=== PATIENT | female | born 1935 | race Caucasian/White ===

== ENCOUNTER 2017-07-12 10:18 | Outpatient (CLI) | payer MEDICARE, OTHER ==
[2016-03-30 14:03] VITALS: BP 131/57
== END 2017-07-12 10:20 ==
LOC: LABRHC 10:18
PROVIDERS: ATTEND Physician Assistant
DX: R30.0 Dysuria (principal)
CPT/HCPCS: 87086; 87186

== ENCOUNTER 2017-10-04 15:48 | Inpatient (IN) | payer MEDICARE, OTHER ==
--- NOTE | 2017-10-04 17:44 | History and Physical Report ---
History of Present Illnes - History of Present Illness Reason for Visit: Gait disturbance following debilitating illness. History of Present Illness: Patient is an 82-year-old white female who resides at [facility]. Patient has a history of chronic UTIs and is on prophylactic Macrobid hundred milligrams Q day for this. Recently patient was found to be lethargic mentally confused and was subsequently evaluated at [facility]. With felt that the patient was septic with pneumonia and possible another UTI and was subsequently admitted to [facility] ([facility]). Patient was subsequently started on Cipro. Patient did improve however she remained weak and was felt to be an increase fall risk secondary to her gait disturbance. Patient was subsequently transferred to this institution for further rehab services. Patient denied that she had any other medical problems. Her hospital stay at [facility]. - Past Medical History Cardiac: CHF, HTN, Hyperlipidemia, Other [employer]: TIA, Other (Parkinsons disease). denies: Seizure Endocrine: Diabetes (type 2) - Past Surgical History Past Surgical History: Appendectomy, Hysterectomy, Other (Bilateral carotid endarterectomies, left total hip replacement, right hip ORIF, venous strippiong of left lower extremity) - Past Family History Mother Family History: Father Family History: - Past Social History Smoke: No Alcohol: None Drugs: None Lives: With Family - Health Maintenance Health Maintenance: Cholesterol, Mammogram Influenza Vaccine: Current for this Influenza Season Pneumonia Vaccine: Yes Resuscitation Status: Resusciation Status Resuscitation Status Do Not Resuscitate - Unable to Obtain History Unable to Obtain: No Review of Systems - Review of Systems Constitutional: negative: Fever, Chills, Sweats Eyes: negative: pain, vision change ENT: negative: Ear Pain, Ear Discharge, Nose Pain, Nose Discharge, Nose Congestion, Mouth Pain, Mouth Swelling, Throat Pain, Throat Swelling Respiratory: negative: Cough, Dry, Shortness of Breath, Hemoptysis, SOB with Excertion, Sputum, Wheezing Cardiovascular: negative: Chest Pain, Palpitations Gastrointestinal: negative: Nausea, Vomiting, Abdominal Pain, Diarrhea, Constipation, Melena Genitourinary: negative: Dysuria, Frequency Musculoskeletal: negative: Neck Pain, Shoulder Pain Skin: negative: Rash, Lesions Neurological: Weakness. negative: Numbness, Incoordination - Medications/Allergies Allergies/Adverse Reactions: Allergies Allergy/AdvReac Type Severity Reaction Status Date / Time aspirin Allergy Unknown Verified 02/24/16 20:58 metronidazole [From Flagyl] Allergy Unknown Verified 02/24/16 20:59 Penicillins Allergy Verified 02/24/16 20:58 Current Inpatient Medications: Current Inpatient Medications Acetaminophen (Tylenol) 650 mg PO Q4 PRN PRN Reason: PAIN Aspirin (Aspirin) 81 mg PO DAILY [facility] Carbidopa/Levodopa (Sinemet) 1 each PO TID [facility] Cholecalciferol (Vitamin D-3) 2,000 unit PO DAILY [facility] Ciprofloxacin (Cipro) 500 mg PO BID [facility] Stop: 10/09/17 20:59 Docusate Sodium (Colace) mg PO BID [facility] Enoxaparin Sodium (Lovenox) 30 mg SQ QD [facility] Stop: 10/17/17 18:01 Escitalopram Oxalate (Lexapro) 10 mg PO QD [facility] Glimepiride (Amaryl) 4 mg PO 0730 [facility] Insulin Human Lispro (Humalog) 0 unit SQ 0730,12,17 PRN; Protocol PRN Reason: Hyperglycemica Lactobacillus Acidophilus (Acidophilus X-Str Tab) 1 each PO BID [facility] Melatonin (Melatonin) 3 mg PO HS PRN PRN Reason: Insomnia Nitrofurantoin Macrocrystals (Macrobid) mg PO D [facility] Oxybutynin Chloride (Ditropan) 5 mg PO BID [facility] Simvastatin (Zocor) 40 mg PO HS [facility] Exam - Exam General: Alert, Oriented to Person, Oriented to Place, Oriented to Time, Cooperative, No acute distress HEENT: Atraumatic, PERRLA, EOMI, Mouth Mucous membr. moist/[place], Nose Mucous membr. moist/[place] Neck: Normal Range of Motion. No: Rigidity, Lymphadenopathy Carotids: WNL Thyroid: WNL Lungs: Clear to auscultation, Normal air movement, Speaks full Sentences Cardiovascular: Regular rate, Normal S1, Normal S2, No murmurs Abdomen: Normal bowel sounds, Soft, No tenderness, No hepatospenomegaly, No masses Integumentary: Normal, [place], Warm, Dry Extremities: No clubbing, No cyanosis, No edema, Normal pulses, No tenderness/ swelling Neurological: Normal gait, Normal speech, Strength Equal Bilat, Normal tone, Sensation intact, Cranial nerves 3-12 NL, Reflexes 2+ Psych/Mental Status: Mental status NL, Mood NL, Appropriate Affect, Intact Judgment Assessment/Plan - Assessment/Plan (1) Gait abnormality Status: Acute Assessment: Patient is unsteady with her ambulation at this time. Will get physical and occupational therapy. It is hoped that the patient will be able to return to her assisted living. (2) CHF (congestive heart failure) Status: Chronic Assessment: Recent exacerbation of acute on chronic congestive heart fair with diastolic dysfunction. Patient seem to be doing well at this time. Patient is not complain of any shortness of breath or chest pain. Patient is not have any orthotic symptoms. Will continue with present medications and monitor patient. (3) Status post cerebrovascular accident Status: Chronic Assessment: Status post left-sided CVA with residual neurological deficits on the right side mainly consisting of right patient dripping. The seem to be stable. Patient denies any new symptoms. (4) Essential hypertension Status: Chronic Assessment: Patient will be continued on present home medications. Will monitor patient blood pressure. (5) Diabetes Status: Chronic Qualifiers: Diabetes mellitus type: type 2 Diabetes mellitus complication status: with circulatory complication Diabetes mellitus complication detail: with other circulatory complications Qualified Code(s): E11.59 - Type 2 diabetes mellitus with other circulatory complications Assessment: Appears to be stable at this time. Patient denies any hypoglycemic episodes. Will continue at present insulin and climate right therapy. Will monitor patient blood sugars. (6) Pneumonia Status: Acute Qualifiers: Pneumonia type: due to unspecified organism Laterality: bilateral Lung location: lower lobe of lung Qualified Code(s): J18.9 - Pneumonia, unspecified organism Assessment: Appears to be well treated at this time. Patient is not complain of any shortness of breath or cough. Patient denies any chest pain. (7) Parkinson disease Status: Chronic Assessment: Stable will continue at present home medications. VTE Assessment - RISK FACTOR SCORE VTE RISK FACTOR SCORES: AGE OVER 60 YEARS, ANTICIPATED BED CONFINEMENT OR IMMOBILIZATION > 24 HOURS - RISK VTE MODERATE RISK: SCORE OF 2 (RISK PROXIMAL DVT 2-4%) PROPHYAXIS NEEDED
[2017-10-04] MEDS: GLIMEPIRIDE 2 MG TABLET PO SCH (17:52)
[2017-10-04] MEDS: LACTOBACILLUS ACIDOPHILUS CAPS PO SCH ×2 (17:52→21:47)
[2017-10-04] MEDS: ENOXAPARIN SODIUM 30 MG/0.3 ML DISP.SYRIN SQ SCH (18:09)
[2017-10-04] MEDS: ESCITALOPRAM OXALATE 10 MG TABLET PO SCH (18:09)
[2017-10-04 18:38] VITALS: BMI 22.8
[2017-10-04] MEDS ORDERED: DOCUSATE SODIUM 100 MG CAPSULE PO SCH (21:00)
[2017-10-04] MEDS: CIPROFLOXACIN HCL 500 MG TABLET PO SCH (21:47)
[2017-10-04] MEDS: OXYBUTYNIN CHLORIDE 5 MG TABLET PO SCH (21:48)
[2017-10-04] MEDS: SIMVASTATIN 40 MG TABLET PO SCH (21:48)
[2017-10-05] MEDS ORDERED: ASPIRIN EC 81 MG TABLET.DR ONE (02:31)
[2017-10-05] MEDS: GLIMEPIRIDE 2 MG TABLET PO SCH (07:52)
[2017-10-05] MEDS ORDERED: NITROFURANTOIN 100 MG CAPSULE PO SCH (09:00)
[2017-10-05] MEDS: OXYBUTYNIN CHLORIDE 5 MG TABLET PO SCH ×2 (09:55→20:58)
[2017-10-05] MEDS: CHOLECALCIFEROL (VIT D3) 1,000 UNIT TABLET PO SCH (09:55)
[2017-10-05] MEDS: ASPIRIN 81 MG CHEW TAB PO SCH (09:55)
[2017-10-05] MEDS: CIPROFLOXACIN HCL 500 MG TABLET PO SCH ×2 (09:56→20:58)
[2017-10-05] MEDS: LACTOBACILLUS ACIDOPHILUS CAPS PO SCH ×2 (09:56→20:58)
[2017-10-05] MEDS: ESCITALOPRAM OXALATE 10 MG TABLET PO SCH (18:22)
[2017-10-05] MEDS: ENOXAPARIN SODIUM 30 MG/0.3 ML DISP.SYRIN SQ SCH (18:22)
[2017-10-05] MEDS: SIMVASTATIN 40 MG TABLET PO SCH (20:58)
[2017-10-05] MEDS: ACETAMINOPHEN 325 MG TABLET PO PRN (21:05)
[2017-10-05] MEDS: MELATONIN 3 MG TABLET PO PRN (21:05)
[2017-10-06] MEDS: LACTOBACILLUS ACIDOPHILUS CAPS PO SCH ×2 (09:29→20:34)
[2017-10-06] MEDS: OXYBUTYNIN CHLORIDE 5 MG TABLET PO SCH ×2 (09:31→20:34)
[2017-10-06] MEDS: CIPROFLOXACIN HCL 500 MG TABLET PO SCH ×2 (09:31→20:34)
[2017-10-06] MEDS: ASPIRIN 81 MG CHEW TAB PO SCH (09:32)
[2017-10-06] MEDS: CHOLECALCIFEROL (VIT D3) 1,000 UNIT TABLET PO SCH (09:33)
[2017-10-06] MEDS: ESCITALOPRAM OXALATE 10 MG TABLET PO SCH (18:00)
[2017-10-06] MEDS: ENOXAPARIN SODIUM 30 MG/0.3 ML DISP.SYRIN SQ SCH (18:00)
[2017-10-06] MEDS: SIMVASTATIN 40 MG TABLET PO SCH (20:34)
[2017-10-06] MEDS: GLIMEPIRIDE 2 MG TABLET PO SCH (20:36)
[2017-10-06] MEDS: ACETAMINOPHEN 325 MG TABLET PO PRN (21:05)
[2017-10-06] MEDS: MELATONIN 3 MG TABLET PO PRN (21:06)
[2017-10-06] MEDS: INSULIN LISPRO 100 UNIT/ML 3ML VIAL SQ PRN (21:15)
[2017-10-07] MEDS: GLIMEPIRIDE 2 MG TABLET PO SCH (07:48)
[2017-10-07] MEDS: CIPROFLOXACIN HCL 500 MG TABLET PO SCH ×2 (07:49→21:25)
[2017-10-07] MEDS: LACTOBACILLUS ACIDOPHILUS CAPS PO SCH ×2 (07:50→21:25)
[2017-10-07] MEDS: CHOLECALCIFEROL (VIT D3) 1,000 UNIT TABLET PO SCH (07:50)
[2017-10-07] MEDS: ASPIRIN 81 MG CHEW TAB PO SCH (07:50)
[2017-10-07] MEDS: OXYBUTYNIN CHLORIDE 5 MG TABLET PO SCH ×2 (07:50→21:25)
[2017-10-07] MEDS: INSULIN LISPRO 100 UNIT/ML 3ML VIAL SQ PRN ×2 (11:50→16:42)
[2017-10-07] MEDS: ENOXAPARIN SODIUM 30 MG/0.3 ML DISP.SYRIN SQ SCH (18:20)
[2017-10-07] MEDS: ESCITALOPRAM OXALATE 10 MG TABLET PO SCH (18:20)
[2017-10-07] MEDS: SIMVASTATIN 40 MG TABLET PO SCH (21:25)
[2017-10-08] MEDS ORDERED: ASPIRIN EC 81 MG TABLET.DR ONE (05:38)
[2017-10-08] MEDS: GLIMEPIRIDE 2 MG TABLET PO SCH (09:20)
[2017-10-08] MEDS: CIPROFLOXACIN HCL 500 MG TABLET PO SCH ×2 (09:21→21:54)
[2017-10-08] MEDS: LACTOBACILLUS ACIDOPHILUS CAPS PO SCH ×2 (09:21→21:54)
[2017-10-08] MEDS: ASPIRIN 81 MG CHEW TAB PO SCH (09:21)
[2017-10-08] MEDS: CHOLECALCIFEROL (VIT D3) 1,000 UNIT TABLET PO SCH (09:22)
[2017-10-08] MEDS: OXYBUTYNIN CHLORIDE 5 MG TABLET PO SCH ×2 (09:22→21:54)
[2017-10-08 13:58] LABS: BASOPHILS % 0.8 (0.0-1.5); EOSINOPHILS % 1.7 % (0.0-6.8); MEAN CORPUSCULAR HEMOGLOBIN 30.5 pg (28.0-34.0); NEUTROPHILS # 5.7 # k/uL (1.4-7.7)
[2017-10-08 14:18] LABS: eGFR (African) > 60; eGFR (Non-African) > 60
[2017-10-08] MEDS: ESCITALOPRAM OXALATE 10 MG TABLET PO SCH (17:44)
[2017-10-08] MEDS: ENOXAPARIN SODIUM 30 MG/0.3 ML DISP.SYRIN SQ SCH (17:44)
[2017-10-08] MEDS: SIMVASTATIN 40 MG TABLET PO SCH (21:54)
[2017-10-08] MEDS: NITROFURANTOIN 100 MG CAPSULE PO SCH (21:54)
[2017-10-08] MEDS: ACETAMINOPHEN 325 MG TABLET PO PRN (21:54)
[2017-10-09] MEDS: GLIMEPIRIDE 2 MG TABLET PO SCH (07:22)
[2017-10-09 11:10] LABS: MEAN CORPUSCULAR HEMOGLOBIN 30.1 pg (28.0-34.0); MEAN CORPUSCULAR VOLUME 89.1 fl (80.0-100.0)
[2017-10-09] MEDS: ACETAMINOPHEN 325 MG TABLET PO PRN (11:33)
[2017-10-09] MEDS: CIPROFLOXACIN HCL 500 MG TABLET PO SCH (11:35)
[2017-10-09] MEDS: OXYBUTYNIN CHLORIDE 5 MG TABLET PO SCH (11:40)
[2017-10-09] MEDS: LACTOBACILLUS ACIDOPHILUS CAPS PO SCH (11:40)
[2017-10-09] MEDS: ASPIRIN 81 MG CHEW TAB PO SCH (11:41)
[2017-10-09] MEDS: NITROFURANTOIN 100 MG CAPSULE PO SCH (11:41)
[2017-10-09] MEDS: CHOLECALCIFEROL (VIT D3) 1,000 UNIT TABLET PO SCH (11:42)
[2017-10-09 11:46] VITALS: BP 147/83
[2017-10-09 11:55] LABS: MONOCYTES % 2 % (0-11); SEGMENTED NEUTROPHILS % 93 % (39-79)
[2017-10-09] MEDS: INSULIN LISPRO 100 UNIT/ML 3ML VIAL SQ PRN (11:57)
[2017-10-09 12:12] LABS: APPEARANCE,URINE Clear (CLEAR); COLOR,URINE Yellow (YELLOW); OCCULT BLOOD,URINE Negative (NEGATIVE); UROBILINOGEN URINE 0.2 Eu (0.2-1.0)
[2017-10-09 12:22] LABS: AMORPHOUS SEDIMENT,UR FEW (NEGATIVE)
--- NOTE | 2017-10-09 12:48 | Diagnostic Imaging Report ---
[facility] [id number] [facility] [address] [place] [id number] Report Submission Date: Oct 09, 2017 12:18:55 PM SOFTWARE EDUCATOR Patient Study Name: AP COLE Date: Oct 09, 2017 12:04:50 PM SOFTWARE EDUCATOR Modality Type: CR Gender: F Description: CHEST : 35 Institution: [facility] Physician: TITUS WISE Examination: Portable chest History: Chest discomfort Comparison exam: 27 September 2017 Findings: Single view of the chest demonstrates a hypoventilated is but or effort resulting in mild crowding of the cardiac and mediastinal silhouette. Chronic interstitial changes. Increased haziness involving the right hemithorax with mild blunting of the right costophrenic margin. Osseous structures are appropriate for age. Impression: Mild right hilar haziness and likely effusion. Electronically signed on Oct 09, 2017 12:18:55 PM SOFTWARE EDUCATOR by: George HAZEL
--- NOTE | 2017-10-09 14:07 | Discharge Summary ---
Discharge Summary - Discharge Sumary History of Present Illness: Patient was admitted from [facility] for skilled therapy after spending time in the ICU for sepsis. Condition at Discharge: Stable Home Medications: Ambulatory Orders Medication Instructions Recorded Acetaminophen [Tylenol] 650 mg PO Q4 PRN u2 04/06/16 Glimepiride 4 mg PO DAILY u2 04/06/16 Melatonin [Melatin] 3 mg PO HS PRN u2 04/06/16 Carbidopa/Levodopa [Carbidopa-Levo 1 tab PO TID 09/21/17 25-100 mg Odt] Ciprofloxacin HCl [Cipro] 500 mg PO BID 09/21/17 Docusate Sodium [Colace] 1 tab PO BID 09/21/17 Escitalopram Oxalate [Lexapro] 10 mg PO QD 09/21/17 Insulin Lispro 3Ml [Humalog] 100 unit SQ 0730, PRN 09/21/17 Lactobacillus Acidophilus 1 each PO D 09/21/17 [Acidophilus] Nitrofurantoin Monohyd/M-Cryst 1 tab PO BID 09/21/17 [Macrobid] Consultations this Visit: None Procedures this Visit: None Allergies/Adverse Reactions: Allergies Allergy/AdvReac Type Severity Reaction Status Date / Time aspirin Allergy Unknown Verified 02/24/16 20:58 metronidazole [From Flagyl] Allergy Unknown Verified 02/24/16 20:59 Penicillins Allergy Verified 02/24/16 20:58 Discharge Summary: On the day of discharge, patient began running a 103.5 temp and feeling poorly though no specific complaints. WBC went from 7,000 to 12,000, Normal SAT on RA was 99% but dropped to 91%. BP had been 130-140 but dropped to 107. Influenza testing negative. Due to high concern over her becoming septic again , patient was transferred to [place] for further care as she had just been on vancomycin and invanz for her pneumonia. Hospital Course: Disp - [facility]. Dx - Weakness; recurrent UTI, FEver.
[2017-10-09] MEDS ORDERED: SALINE FLUSH 10 ML DISP.SYRIN IVF ONE (14:37)
[2017-10-09] MEDS ORDERED: 0.9 % SODIUM CHLORIDE 1,000 ML IV ONE (14:41)
[2017-10-10 09:56] LABS: ADENOVIRUS DNA NEGATIVE (NEGATIVE); BORDETELLA PERTUSSIS DNA NEGATIVE (NEGATIVE); SOURCE: NASOPHARYNGEAL SWAB
== END 2017-10-09 15:15 | disposition short-term general hospital (02) | DRG 193 ==
LOC: SOUTH 15:48 → UNDOADMIN 15:48
PROVIDERS: ADMIT Family Medicine; ATTEND Family Medicine
DX: J18.9 Pneumonia, unspecified organism (principal); I63.8 Other cerebral infarction; N39.0 Urinary tract infection, site not specified; I50.9 Heart failure, unspecified; I10 Essential (primary) hypertension; E11.59 Type 2 diabetes mellitus with other circulatory complications; G20 Parkinson's disease; R53.1 Weakness
CPT/HCPCS: 36415; 71010; 80053; 81002; 83605; 85025; 87086; 87400; 87486; 87581; 87633; 87798; J1650; J1815; J7030; S1016

== ENCOUNTER 2019-07-23 06:50 | Outpatient (CLI) | payer MEDICARE, OTHER | END 2019-07-23 06:55 | LOC: LAB 06:50 | PROVIDERS: ATTEND Family Medicine | DX: E10.9 Type 1 diabetes mellitus without complications (principal); I50.9 Heart failure, unspecified; I48.91 Unspecified atrial fibrillation | CPT/HCPCS: 36415; 83036; P9603 ==

== ENCOUNTER 2019-08-25 08:05 | Outpatient (CLI) | payer MEDICARE, OTHER ==
[2019-08-25 10:19] LABS: eGFR (Non-African) > 60
== END 2019-08-25 08:15 ==
LOC: LAB 08:05
PROVIDERS: ATTEND Family Medicine
DX: I50.31 Acute diastolic (congestive) heart failure (principal); E87.6 Hypokalemia
CPT/HCPCS: 36415; 80048; 83880; P9603

== ENCOUNTER 2019-09-01 09:25 | Outpatient (CLI) | payer MEDICARE, OTHER ==
[2019-09-01 09:40] LABS: eGFR (Non-African) > 60
== END 2019-09-01 09:30 ==
LOC: LAB 09:25
PROVIDERS: ATTEND Family Medicine
DX: E10.9 Type 1 diabetes mellitus without complications (principal); E87.6 Hypokalemia; I50.9 Heart failure, unspecified
CPT/HCPCS: 36415; 80048; 83880